=== PATIENT | female | born 1965 | race African-American/Black ===

== ENCOUNTER 2022-10-27 09:12 | Emergency (ER) | payer OTHER ==
[~2022-10-27] VITALS: Ht 162.6 cm; Wt 119.7 kg
[2022-10-27 09:32] VITALS: BP 136/79
--- NOTE | 2022-10-27 09:35 | NUR ---
Patient ambulated to bed 8.
--- NOTE | 2022-10-27 10:30 | NUR ---
Patient being evaluated by physician at bedside.
[2022-10-27] MEDS ORDERED: LIDOCAINE 5% 1 EA PATCH TP ONE (10:40)
[2022-10-27] MEDS ORDERED: KETOROLAC 30 MG/ML VIAL IM ONE (10:40)
--- NOTE | 2022-10-27 11:20 | NUR ---
Patient discharged with v/s stable. Written and verbal after care instructions given. Patient verbalized understanding. Ambulatory with steady gait. All questions addressed prior to discharge. Advised to follow up with PMD.
--- NOTE | 2022-10-27 11:22 | NUR ---
The patient's care was reviewed and supervised by Ivone Avila, RN, RN.
== END 2022-10-27 11:20 | disposition home or self-care (01) ==
LOC: MED 09:12
DX: M19.90 Unspecified osteoarthritis, unspecified site (principal); E66.9 Obesity, unspecified; I10 Essential (primary) hypertension
CPT/HCPCS: 96372; 99283; J1885

== ENCOUNTER 2023-01-26 07:44 | Emergency (ER) | payer OTHER ==
[~2023-01-26] VITALS: Ht 165.1 cm; Wt 127.0 kg
[2023-01-26 08:01] VITALS: BP 149/92; PULSE 74; RESP 20; TEMP 98.1; O2SAT 99
[2023-01-26] MEDS ORDERED: NAPR-1704 PO (08:54)
[2023-01-26] MEDS ORDERED: ZOLP5TAB1 PO (08:54)
[2023-01-26 09:00] VITALS: BP 149/68; PULSE 84; RESP 19; TEMP 98; O2SAT 99
== END 2023-01-26 09:00 | disposition home or self-care (01) ==
LOC: MED 07:44
DX: G47.00 Insomnia, unspecified (principal); M17.0 Bilateral primary osteoarthritis of knee; M19.011 Primary osteoarthritis, right shoulder; M19.012 Primary osteoarthritis, left shoulder; I10 Essential (primary) hypertension; Z79.899 Other long term (current) drug therapy
CPT/HCPCS: 99283

== ENCOUNTER 2023-04-04 07:38 | Emergency (ER) | payer OTHER ==
[~2023-04-04] VITALS: Ht 162.6 cm; Wt 84.8 kg
[~2023-04-04 07:38] MED LIST: NAPR-1704 PO; ZOLP5TAB1 PO
[2023-04-04 07:43] VITALS: BP 127/69; PULSE 78; RESP 18; TEMP 98.3; O2SAT 96
[2023-04-04] MEDS ORDERED: KETOROLAC 30 MG/ML VIAL IM ONE (08:05)
[2023-04-04] MEDS ORDERED: MELA5SGL PO (09:27)
[2023-04-04 09:40] VITALS: BP 125/59; PULSE 78; RESP 18; TEMP 98.3; O2SAT 96
== END 2023-04-04 09:42 | disposition home or self-care (01) ==
LOC: MED 07:38
DX: M17.0 Bilateral primary osteoarthritis of knee (principal); G47.00 Insomnia, unspecified; I10 Essential (primary) hypertension; Z79.899 Other long term (current) drug therapy; Z79.1 Long term (current) use of non-steroidal anti-inflammatories (NSAID)
CPT/HCPCS: 73562; 96372; 99283; J1885

== ENCOUNTER 2023-05-02 08:36 | Emergency (ER) | payer OTHER ==
[~2023-05-02] VITALS: Ht 162.6 cm; Wt 112.9 kg
[~2023-05-02 08:36] MED LIST changes: +MELA5SGL PO
[2023-05-02 08:38] VITALS: BP 107/66; PULSE 81; RESP 20; TEMP 97.2; O2SAT 100
[2023-05-02] MEDS ORDERED: KETOROLAC 30 MG/ML VIAL IM ONE (09:15)
[2023-05-02] MEDS ORDERED: IBUP-1842 PO (10:01)
[2023-05-02 10:38] VITALS: BP 117/66; PULSE 78; RESP 20; TEMP 97.8; O2SAT 100
== END 2023-05-02 10:38 | disposition home or self-care (01) ==
LOC: MED 08:36
DX: M17.0 Bilateral primary osteoarthritis of knee (principal); I10 Essential (primary) hypertension; Z79.899 Other long term (current) drug therapy; Z79.1 Long term (current) use of non-steroidal anti-inflammatories (NSAID)
CPT/HCPCS: 96372; 99283; J1885

== ENCOUNTER 2023-07-04 08:55 | Emergency (ER) | payer OTHER ==
[~2023-07-04] VITALS: Ht 165.1 cm; Wt 104.3 kg
[~2023-07-04 08:55] MED LIST changes: +IBUP-1842 PO
[2023-07-04 09:11] VITALS: BP 110/72; PULSE 88; RESP 20; TEMP 98.2; O2SAT 99
[2023-07-04 09:30] VITALS: O2SAT 99
[2023-07-04] MEDS ORDERED: KETOROLAC 30 MG/ML VIAL IM ONE (10:55)
[2023-07-04] MEDS ORDERED: DICL20GE TP (11:22)
[2023-07-04 11:40] VITALS: BP 110/72; PULSE 88; RESP 20; TEMP 98.2; O2SAT 99
== END 2023-07-04 11:37 | disposition home or self-care (01) ==
LOC: MED 08:55
DX: M13.862 Other specified arthritis, left knee (principal); M13.861 Other specified arthritis, right knee; Z79.899 Other long term (current) drug therapy
CPT/HCPCS: 96372; 99283; J1885